=== PATIENT | male | born 1985 | race Caucasian/White ===

== ENCOUNTER → 2021-01-27 11:02 | Outpatient (BNVA) | payer OTHER, SELFPAY | PROVIDERS: Visit Provider Internal Medicine | DX: S39.011D Strain of muscle, fascia and tendon of abdomen, subsequent encounter (principal); X50.9XXD Other and unspecified overexertion or strenuous movements or postures, subsequent encounter | CPT/HCPCS: 99202 ==

== ENCOUNTER → 2021-01-30 09:28 | Outpatient (BNVA) | payer OTHER, SELFPAY | PROVIDERS: Visit Provider Internal Medicine | DX: S39.011D Strain of muscle, fascia and tendon of abdomen, subsequent encounter (principal); X58.XXXD Exposure to other specified factors, subsequent encounter | CPT/HCPCS: 99213 ==